=== PATIENT | male | born 1955 | race African-American/Black ===

== ENCOUNTER 2018-02-11 07:58 | Emergency (ER) | payer BC ==
[~2018-02-11] VITALS: Ht 188 cm; Wt 116.6 kg
[2018-02-11] MEDS ORDERED: IV NORMAL SALINE 1000 ML BAG IV ONE (08:00)
[2018-02-11] MEDS ORDERED: AMIODARONE HCL IV 150 MG in IV DEXTROSE 5% 100 ML IV ONE (08:00)
[2018-02-11 08:13] LABS: BASOPHILS % (AUTO) 1.2 % (0.0-2.0); EOSINOPHILS # (AUTO) 0.1 K/uL (0.0-0.7); HEMOGLOBIN 16.4 g/dL (12.5-16.3); LYMPHOCYTES # (AUTO) 1.4 K/uL (20.0-40.0); LYMPHOCYTES % (AUTO) 38.4 % (20.5-51.5); MEAN CORPUSCULAR HGB CONC 33 g/dL (32.5-36.3); MEAN CORPUSCULAR VOLUME 85.4 fL (73.0-96.2); MONOCYTES # (AUTO) 0.5 K/uL (2.0-10.0); MONOCYTES % (AUTO) 13.7 % (0.0-11.0); NEUTROPHILS # (AUTO) 1.6 K/uL (1.8-8.9); NEUTROPHILS % (AUTO) 42.7 % (38.5-71.5); PLATELET COUNT (AUTO) 169 K/uL (152-348); RED BLOOD CELL COUNT(AUTO) 5.86 MIL/uL (4.06-5.63); WHITE BLOOD COUNT (AUTO) 3.6 K/uL (3.6-10.2)
--- NOTE | 2018-02-11 08:13 | NUR ---
PT IS IN ROOM #1B. DR MORENO EVALUATED THE PT.
[2018-02-11 08:23] LABS: CREATININE 1.2 mg/dL (0.6-1.3); POTASSIUM 3.7 mmol/L (3.5-5.1)
[2018-02-11 08:29] LABS: BILIRUBIN,DIRECT 0.1 mg/dL (0.0-0.2); BILIRUBIN,TOTAL 0.5 mg/dL (0.2-1.0); TOTAL PROTEIN, SERUM 7.7 g/dL (6.4-8.2)
[2018-02-11] MEDS ORDERED: OLME5TAB3 (08:38)
[2018-02-11] MEDS ORDERED: TESTOSTERONE IM (08:38)
[2018-02-11] MEDS ORDERED: ANASTROZOLE ×2 (08:38→08:39)
[2018-02-11] MEDS ORDERED: ASPI-605 PO (08:38)
[2018-02-11] MEDS ORDERED: PRILOSEC (08:38)
[2018-02-11] MEDS ORDERED: CELE200C PO (08:38)
[2018-02-11] MEDS ORDERED: MULTIVITAMINS (08:38)
[2018-02-11] MEDS ORDERED: METOPROLOL PO (08:38)
--- NOTE | 2018-02-11 08:39 | NUR ---
PT DOES NOT REMEMBER DOSES OF HIS HOME MEDICATION. HIS IS JAYNE GO BRING HOME MEDICATION LATER.
[2018-02-11] MEDS ORDERED: AMIODARONE HCL IV 900 MG in IV DEXTROSE 5% 482 ML IV PRN (08:45)
--- NOTE | 2018-02-11 10:07 | NUR ---
PT WAS D/C TO HOME AFTER DR MORENO RE-EVALUATION. D/C INSTRUCTIONS GIVEN TO THE PT. NO S/S IF DISTRESS AT THIS TIME.
[2018-02-11 10:08] VITALS: BP 138/85
== END 2018-02-11 10:09 | disposition home or self-care (01) ==
LOC: ER 08:00
DX: I48.91 Unspecified atrial fibrillation (principal); I10 Essential (primary) hypertension; Z79.01 Long term (current) use of anticoagulants; Z79.82 Long term (current) use of aspirin; Z79.899 Other long term (current) drug therapy
CPT/HCPCS: 36415; 70030-TC; 85025; 93005; A4663; J0282; J7030; J7060

== ENCOUNTER 2021-03-24 09:53 | Emergency (ER) | payer BC, MEDICARE ==
[~2021-03-24] VITALS: Ht 188 cm; Wt 110.2 kg
[~2021-03-24 09:53] MED LIST: ANASTROZOLE; ASPI-605 PO; CELE200C PO; METOPROLOL PO; MULTIVITAMINS; OLME5TAB3; PRILOSEC; TESTOSTERONE IM
--- NOTE | 2021-03-24 10:00 | NUR ---
at bedside for assessment
[2021-03-24 10:21] LABS: BASOPHILS % (AUTO) 0.9 % (0.0-2.0); EOSINOPHILS # (AUTO) 0.1 K/uL (0.0-0.7); EOSINOPHILS % (AUTO) 2.2 % (0.0-7.0); HEMATOCRIT 44.8 % (36.7-47.1); HEMOGLOBIN 14.8 g/dL (12.5-16.3); LYMPHOCYTES # (AUTO) 1.5 K/uL (20.0-40.0); LYMPHOCYTES % (AUTO) 37.5 % (20.5-51.5); MEAN CORPUSCULAR HEMOGLOBIN 28.1 uug (23.8-33.4); MEAN CORPUSCULAR HGB CONC 33 g/dL (32.5-36.3); MEAN CORPUSCULAR VOLUME 85.1 fL (73.0-96.2); MONOCYTES # (AUTO) 0.3 K/uL (2.0-10.0); MONOCYTES % (AUTO) 8.6 % (0.0-11.0); NEUTROPHILS # (AUTO) 2.1 K/uL (1.8-8.9); NEUTROPHILS % (AUTO) 50.8 % (38.5-71.5); PLATELET COUNT (AUTO) 203 K/uL (152-348); RED BLOOD CELL COUNT(AUTO) 5.26 MIL/uL (4.06-5.63); WHITE BLOOD COUNT (AUTO) 4.1 K/uL (3.6-10.2)
[2021-03-24 10:26] LABS: POTASSIUM 3.4 mmol/L (3.5-5.1)
--- NOTE | 2021-03-24 11:00 | NUR ---
Patient discharged to home in stable condition. Noted walking in steady gait, no sign sof acue distress. Written and verbal after care instructions given. Patient verbalizes understanding of instructions. Stressed follow up or return to ER for worsening s/s.
[2021-03-24 11:13] VITALS: BP 136/91
== END 2021-03-24 11:00 | disposition home or self-care (01) ==
LOC: ER 09:53
DX: I48.91 Unspecified atrial fibrillation (principal); Z79.82 Long term (current) use of aspirin; Z79.899 Other long term (current) drug therapy
CPT/HCPCS: 36415; 70030-TC; 71045; 85025; 93005; A4663

== ENCOUNTER 2024-06-07 14:59 | Inpatient (IN) | payer MEDICARE, BC ==
[~2024-06-07] VITALS: Ht 188 cm; Wt 104.3 kg
[2024-06-07] MEDS ORDERED: METF-440 PO (18:59)
[2024-06-07] MEDS ORDERED: MAG30ORA PO (18:59)
[2024-06-07] MEDS ORDERED: DAPA10TA PO (18:59)
[2024-06-07] MEDS ORDERED: PANT40TA2 PO (18:59)
[2024-06-07] MEDS ORDERED: RIVA10TA PO (18:59)
[2024-06-07] MEDS ORDERED: MAGN400O6 PO (18:59)
[2024-06-07] MEDS ORDERED: HYDR12.55 PO (18:59)
[2024-06-07] MEDS ORDERED: SCOP1PAT13 TP (18:59)
[2024-06-07] MEDS ORDERED: POLY17PO4 PO (18:59)
[2024-06-07] MEDS ORDERED: LOSA100T3 PO (18:59)
[2024-06-07] MEDS ORDERED: CLON0.1T PO (18:59)
[2024-06-07] MEDS ORDERED: METO-358 PO (18:59)
[2024-06-07] MEDS ORDERED: DOCU-141 PO (18:59)
[2024-06-07] MEDS ORDERED: DIPH25CA83 PO (18:59)
[2024-06-07] MEDS ORDERED: MAGNESIUM HYDROXIDE 30 ML LIQUID UDC PO PRN (19:45)
[2024-06-07] MEDS ORDERED: diphenhydrAMINE 25 MG CAP PO PRN (19:45)
[2024-06-07] MEDS ORDERED: MAG HYDROX/AL HYDROX/SIMETH 30 ML LIQUID UDC PO PRN (19:45)
[2024-06-07] MEDS ORDERED: CLONIDINE HCL 0.1 MG TABLET PO PRN (19:45)
[2024-06-07] MEDS ORDERED: DEXTROSE 50% 50 ML DISP.SYRIN IV PRN (19:45)
[2024-06-07] MEDS ORDERED: REMEDY ESSENTIAL ZINC PASTE 113 GM TOP PRN (20:15)
[2024-06-07 20:19] VITALS: BP 83/50; TEMP 98.2; O2SAT 95
[2024-06-07] MEDS: BLOOD SUGAR DIAGNOSTIC 1 EACH STRIP VI SCH (20:50)
[2024-06-07] MEDS: INSULIN REGULAR, HUMAN 300 UNIT/3 ML VIAL SQ PRN (20:54)
[2024-06-08 05:56] VITALS: O2SAT 97
[2024-06-08 06:19] VITALS: BP 108/64; TEMP 98.4; O2SAT 97
[2024-06-08 07:17] LABS: BASOPHILS % (AUTO) 0.2 % (0.0-2.0); EOSINOPHILS # (AUTO) 0.1 K/uL (0.0-0.7); EOSINOPHILS % (AUTO) 1.3 % (0.0-7.0); HEMOGLOBIN 12.1 g/dL (12.5-16.3); LYMPHOCYTES # (AUTO) 0.7 K/uL (0.8-4.8); MEAN CORPUSCULAR HEMOGLOBIN 27.7 uug (23.8-33.4); MEAN CORPUSCULAR HGB CONC 32 g/dL (32.5-36.3); MONOCYTES # (AUTO) 0.7 K/uL (0.1-1.30); MONOCYTES % (AUTO) 11.6 % (0.0-11.0); NEUTROPHILS # (AUTO) 4.3 K/uL (1.8-8.9); NEUTROPHILS % (AUTO) 74.9 % (38.5-71.5); PLATELET COUNT (AUTO) 215 K/uL (152-348); RED BLOOD CELL COUNT(AUTO) 4.36 MIL/uL (4.06-5.63); RED CELL DISTRIBUTION WIDTH 14.9 % (12.1-16.2); WHITE BLOOD COUNT (AUTO) 5.7 K/uL (3.6-10.2)
[2024-06-08 07:46] LABS: THYROID STIMULATING HORMONE 1.103 mIU/mL (0.358-3.740)
[2024-06-08 08:00] LABS: ALANINE AMINOTRANSFERASE 22 U/L (16-63); ALBUMIN 2.3 g/dL (3.4-5.0); ALKALINE PHOSPHATASE 45 U/L (50-136); ASPARTATE AMINOTRANSFERASE 16 U/L (15-37); BILIRUBIN,TOTAL 0.7 mg/dL (0.2-1.0); CALCIUM 9.1 mg/dL (8.5-10.1); CARBON DIOXIDE 28 mmol/L (21-32); CHLORIDE 99 mmol/L (98-107); CHOLESTEROL 130 mg/dL (<200); CREATININE 1.2 mg/dL (0.6-1.3); GLUCOSE 121 mg/dL (74-106); HDL CHOLESTEROL 76 mg/dL (40-60); MAGNESIUM 1.9 mg/dL (1.8-2.4); NT-PRO BNP 2526 pg/mL (0-125); PHOSPHOROUS 2.7 mg/dL (2.5-4.9); POTASSIUM 3.8 mmol/L (3.5-5.1); SODIUM SERUM 137 mmol/L (136-145); TOTAL PROTEIN, SERUM 6.8 g/dL (6.4-8.2); TRIGLYCERIDES 51 MG/DL (30-150); UREA NITROGEN, BLOOD 16 mg/dL (7-18)
[2024-06-08 08:06] LABS: DIFFERENTIAL COMMENT 1
[2024-06-08 08:32] LABS: IRON, SERUM 11 ug/dL (50-175)
[2024-06-08] MEDS: DOCUSATE SODIUM 100 MG CAPSULE PO SCH (08:42)
[2024-06-08] MEDS: PANTOPRAZOLE SODIUM 40 MG TABLET.DR PO SCH (08:43)
[2024-06-08] MEDS: MIRALAX 17 GM POWD.PACK PO SCH (08:43)
[2024-06-08] MEDS: METFORMIN HCL 500 MG TABLET PO SCH (08:43)
[2024-06-08] MEDS: OXYCODONE HCL 5 MG TABLET PO PRN (08:44)
[2024-06-08] MEDS ORDERED: Medication Not On Formulary EA (Hydrochlorothiazide 12.5 MG) PO SCH (09:00)
[2024-06-08] MEDS: RIVAROXABAN 10 MG TABLET PO SCH (10:34)
[2024-06-08] MEDS: DAPAGLIFLOZIN PROPANEDIOL 5 MG TABLET PO SCH (10:34)
[2024-06-08] MEDS: LOSARTAN POTASSIUM 50 MG TABLET PO SCH (11:54)
[2024-06-08] MEDS: METOPROLOL SUCCINATE XL 50 MG TAB.SR.24H PO SCH (11:54)
[2024-06-08] MEDS: HYDROCHLOROTHIAZIDE 12.5 MG CAPSULE PO SCH (15:33)
[2024-06-08 16:08] VITALS: BP 100/64; TEMP 98.2; O2SAT 98
[2024-06-08] MEDS: ENOXAPARIN SODIUM 100 MG/ML DISP.SYRIN SQ SCH (20:12)
[2024-06-08 22:00] VITALS: BP 99/54; TEMP 98; O2SAT 93
[2024-06-09 05:26] VITALS: BP 118/77; TEMP 98.6; O2SAT 96
[2024-06-09] MEDS: LOSARTAN POTASSIUM 50 MG TABLET PO SCH (08:51)
[2024-06-09] MEDS: OXYCODONE HCL 5 MG TABLET PO PRN (09:50)
[2024-06-09] MEDS: ONDANSETRON HCL 4 MG TABLET PO PRN (14:36)
[2024-06-09 16:28] VITALS: BP 118/69; TEMP 97.7; O2SAT 98
[2024-06-09] MEDS: ARGININE/GLUTAMINE/CALCIUM BMB 1 EACH POWD.PACK PO SCH (17:25)
[2024-06-09 20:00] VITALS: BP 93/55; TEMP 98.5; O2SAT 94
[2024-06-09 20:40] VITALS: BP 97/56; TEMP 98.5; O2SAT 94
[2024-06-10 06:44] VITALS: BP 104/60; TEMP 98.3; O2SAT 92
[2024-06-10 12:00] VITALS: BP 104/64; TEMP 98.2; O2SAT 95
[2024-06-10 16:04] VITALS: BP 94/54; TEMP 98.7; O2SAT 95
[2024-06-10 19:15] VITALS: BP 93/57; O2SAT 100
[2024-06-10] MEDS ORDERED: DEXTROSE 50% 50 ML DISP.SYRIN IV PRN (20:00)
[2024-06-10] MEDS ORDERED: INSULIN REGULAR, HUMAN 300 UNIT/3 ML VIAL SQ PRN (20:00)
[2024-06-10] MEDS: BLOOD SUGAR DIAGNOSTIC 1 EACH STRIP VI SCH (21:06)
[2024-06-11] MEDS: METOPROLOL SUCCINATE XL 50 MG TAB.SR.24H PO SCH (09:00)
[2024-06-11] MEDS ORDERED: IV NORMAL SALINE 250 ML IV ONE (09:13)
[2024-06-11] MEDS ORDERED: SWABABLE VALVE TRANSFER SET EA MC ONE (09:13)
[2024-06-11] MEDS ORDERED: IOHEXOL 350 100 ML INFUS..BTL ONE (09:15)
[2024-06-11 16:04] VITALS: BP 95/56; TEMP 98; O2SAT 93
[2024-06-11 17:04] LABS: BASOPHILS % (AUTO) 0.5 % (0.0-2.0); EOSINOPHILS # (AUTO) 0.1 K/uL (0.0-0.7); EOSINOPHILS % (AUTO) 2.9 % (0.0-7.0); HEMATOCRIT 37.4 % (36.7-47.1); LYMPHOCYTES % (AUTO) 22.3 % (20.5-51.5); MEAN CORPUSCULAR HGB CONC 32 g/dL (32.5-36.3); MEAN CORPUSCULAR VOLUME 87.2 fL (73.0-96.2); MONOCYTES # (AUTO) 0.6 K/uL (0.1-1.30); MONOCYTES % (AUTO) 13.1 % (0.0-11.0); NEUTROPHILS # (AUTO) 2.7 K/uL (1.8-8.9); NEUTROPHILS % (AUTO) 61.2 % (38.5-71.5); PLATELET COUNT (AUTO) 315 K/uL (152-348); RED CELL DISTRIBUTION WIDTH 14.8 % (12.1-16.2); WHITE BLOOD COUNT (AUTO) 4.4 K/uL (3.6-10.2)
[2024-06-11 17:22] LABS: CALCIUM 10.1 mg/dL (8.5-10.1); CREATININE 1.2 mg/dL (0.6-1.3); POTASSIUM 3.9 mmol/L (3.5-5.1)
[2024-06-11 17:24] LABS: DIFFERENTIAL COMMENT 1
[2024-06-11 19:35] VITALS: BP 121/61; TEMP 98.4; O2SAT 96
[2024-06-12 06:14] VITALS: BP 135/65; TEMP 97.5; O2SAT 97
[2024-06-12 08:07] LABS: ALBUMIN 2.3 g/dL (3.4-5.0); BILIRUBIN,TOTAL 0.5 mg/dL (0.2-1.0); CALCIUM 9.7 mg/dL (8.5-10.1); CREATININE 1.2 mg/dL (0.6-1.3); PHOSPHOROUS 3.5 mg/dL (2.5-4.9); POTASSIUM 3.7 mmol/L (3.5-5.1); TOTAL PROTEIN, SERUM 7.3 g/dL (6.4-8.2)
[2024-06-12 08:13] LABS: BASOPHILS % (AUTO) 0.6 % (0.0-2.0); EOSINOPHILS # (AUTO) 0.2 K/uL (0.0-0.7); EOSINOPHILS % (AUTO) 4.9 % (0.0-7.0); HEMATOCRIT 35.6 % (36.7-47.1); HEMOGLOBIN 11.4 g/dL (12.5-16.3); LYMPHOCYTES # (AUTO) 0.9 K/uL (0.8-4.8); LYMPHOCYTES % (AUTO) 22.3 % (20.5-51.5); MEAN CORPUSCULAR HEMOGLOBIN 27.6 uug (23.8-33.4); MEAN CORPUSCULAR HGB CONC 32 g/dL (32.5-36.3); MEAN CORPUSCULAR VOLUME 86.3 fL (73.0-96.2); MONOCYTES # (AUTO) 0.6 K/uL (0.1-1.30); MONOCYTES % (AUTO) 13.8 % (0.0-11.0); NEUTROPHILS # (AUTO) 2.3 K/uL (1.8-8.9); NEUTROPHILS % (AUTO) 58.4 % (38.5-71.5); PLATELET COUNT (AUTO) 332 K/uL (152-348); RED BLOOD CELL COUNT(AUTO) 4.12 MIL/uL (4.06-5.63); RED CELL DISTRIBUTION WIDTH 14.7 % (12.1-16.2)
[2024-06-12 08:19] LABS: DIFFERENTIAL COMMENT 1
[2024-06-12 08:57] VITALS: TEMP 98
[2024-06-12] MEDS ORDERED: GADOTERATE MEGLUMINE 10 MMOL/20 ML VIAL IV ONE (19:15)
[2024-06-12 19:50] VITALS: BP 124/60; TEMP 98.1; O2SAT 97
[2024-06-13 08:09] LABS: HOMOCYSTEINE, PLASMA 17.7 umol/L (0.0-17.2)
[2024-06-13 09:12] LABS: FREE KAPPA LT CHAINS SERUM 28.5 mg/L (3.3-19.4); FREE LAMBDA LT CHAIN SERUM 26.4 mg/L (5.7-26.3); KAPPA/LAMBDA RATIO SERUM 1.08 (0.26-1.65)
[2024-06-13 10:03] LABS: BASOPHILS % (AUTO) 0.5 % (0.0-2.0); EOSINOPHILS % (AUTO) 5.1 % (0.0-7.0); HEMATOCRIT 36.5 % (36.7-47.1); HEMOGLOBIN 11.5 g/dL (12.5-16.3); LYMPHOCYTES % (AUTO) 23.1 % (20.5-51.5); MEAN CORPUSCULAR HEMOGLOBIN 28.2 uug (23.8-33.4); MEAN CORPUSCULAR HGB CONC 32 g/dL (32.5-36.3); MEAN CORPUSCULAR VOLUME 86.9 fL (73.0-96.2); MONOCYTES % (AUTO) 13.4 % (0.0-11.0); NEUTROPHILS # (AUTO) 2.3 K/uL (1.8-8.9); NEUTROPHILS % (AUTO) 57.9 % (38.5-71.5); PLATELET COUNT (AUTO) 341 K/uL (152-348); RED BLOOD CELL COUNT(AUTO) 4.08 MIL/uL (4.06-5.63); RED CELL DISTRIBUTION WIDTH 14.6 % (12.1-16.2)
[2024-06-13 10:04] LABS: EOSINOPHILS # (AUTO) 0.2 K/uL (0.0-0.7); LYMPHOCYTES # (AUTO) 0.9 K/uL (0.8-4.8); MONOCYTES # (AUTO) 0.5 K/uL (0.1-1.30)
[2024-06-13 13:58] LABS: CALCIUM 9.7 mg/dL (8.5-10.1); CREATININE 1.1 mg/dL (0.6-1.3); POTASSIUM 4.3 mmol/L (3.5-5.1)
[2024-06-13 20:34] VITALS: BP 128/77; TEMP 98.3; O2SAT 95
[2024-06-13] MEDS ORDERED: ONDANSETRON HCL 4 MG/5 ML UDC ORAL SOL GT PRN (22:45)
[2024-06-14 06:10] VITALS: BP 116/70; TEMP 98; O2SAT 94
[2024-06-14] MEDS: METFORMIN HCL 500 MG TABLET PO SCH (06:52)
[2024-06-14] MEDS: CYANOCOBALAMIN 1,000 MCG TABLET PO SCH (09:33)
[2024-06-14] MEDS: FOLIC ACID 1 MG TABLET PO SCH (09:33)
[2024-06-14] MEDS: PYRIDOXINE HCL 100 MG TABLET PO SCH (09:34)
[2024-06-14 15:07] LABS: A/G RATIO 0.6 (0.7-1.7); ALBUMIN 2.6 g/dL (2.9-4.4); ALPHA-1-GLOBULIN 0.7 g/dL (0.0-0.4); ALPHA-2-GLOBULIN 1.2 g/dL (0.4-1.0); BETA GLOBULIN 1.5 g/dL (0.7-1.3); GAMMA GLOBULIN 0.7 g/dL (0.4-1.8); GLOBULIN, TOTAL 4.1 g/dL (2.2-3.9); M-SPIKE Not Observed g/dL (Not Observed)
[2024-06-14 15:08] VITALS: BP 143/90; TEMP 98.4; O2SAT 97
[2024-06-15 03:30] VITALS: BP 122/68; TEMP 97; O2SAT 95
[2024-06-15 07:03] VITALS: BP 122/66; TEMP 98.1; O2SAT 95
[2024-06-15 15:08] VITALS: BP 131/69; TEMP 98.2; O2SAT 97
[2024-06-15 21:25] VITALS: BP 102/59; TEMP 97.9; O2SAT 94
[2024-06-16 07:19] VITALS: BP 123/74; TEMP 97.8; O2SAT 94
[2024-06-16 08:49] VITALS: BP 131/76
[2024-06-18 10:11] LABS: *IMMUNOGLOBULIN G, SERUM 746 mg/dL (603-1613); IMMUNOGLOBULIN A, SERUM 296 mg/dL (61-437)
[2024-06-18 11:06] LABS: *PROTEIN S FREE 111 % (61-136); HEXAGONAL PHASE PHOSPHOLIPID 3 sec (0-11); PTT-LA 50.2 sec (0.0-43.5); PTT-LA MIX 49.7 sec (0.0-40.5); THROMBIN TIME 15.8 sec (0.0-23.0); dRVVT 50.1 sec (0.0-47.0)
[2024-06-20 13:09] LABS: BETA-2-GLYCOPROTEIN IGG/M/A < 9 (0-25); FOLATE (FOLIC ACID), SERUM 16.1 ng/mL (>3.0); IMMUNOGLOBULIN M, SERUM 44 mg/dL (20-172); LUPUS INTERPRETATION Comment: (.)
== END 2024-06-16 14:30 | disposition home health service (06) | DRG 949 ==
PROVIDERS: ADMIT Physical Medicine & Rehabilitation Pain Medicine; ATTEND Physical Medicine & Rehabilitation Pain Medicine
DX: T84.093D Other mechanical complication of internal left knee prosthesis, subsequent encounter (principal); E43 Unspecified severe protein-calorie malnutrition; I48.20 Chronic atrial fibrillation, unspecified; I82.442 Acute embolism and thrombosis of left tibial vein; J98.11 Atelectasis; E72.11 Homocystinuria; E11.9 Type 2 diabetes mellitus without complications; I48.91 Unspecified atrial fibrillation; M17.12 Unilateral primary osteoarthritis, left knee; D50.9 Iron deficiency anemia, unspecified; D18.09 Hemangioma of other sites; E78.5 Hyperlipidemia, unspecified; E88.09 Other disorders of plasma-protein metabolism, not elsewhere classified; K57.30 Diverticulosis of large intestine without perforation or abscess without bleeding; K80.20 Calculus of gallbladder without cholecystitis without obstruction; N20.0 Calculus of kidney; N40.0 Benign prostatic hyperplasia without lower urinary tract symptoms; E66.9 Obesity, unspecified; Z68.29 Body mass index [BMI] 29.0-29.9, adult; I11.9 Hypertensive heart disease without heart failure; Z79.01 Long term (current) use of anticoagulants; Z96.652 Presence of left artificial knee joint; K21.9 Gastro-esophageal reflux disease without esophagitis
CPT/HCPCS: 36415; 70030-TC; 71275; 82378; 82652; 82746; 82784; 83090; 83550; 83735; 84100; 84153; 84155; 84165; 84443; 84484; 85025; 85305; 85610; 85613; 86334; 93307; 97535-GO-CO; A4663; A9575; J1650; J1815; Q0162; Q9967